=== PATIENT | male | born 1985 | race Two or more races ===

== ENCOUNTER 2021-03-04 09:57 | Emergency (ER) | payer OTHER, SELFPAY ==
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
[2021-03-04 11:28] VITALS: BP 144/65; PULSE 95; RESP 16; TEMP 36.7; O2SAT 99; BMI 29.2
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
[2021-03-04] MEDS: Acetaminophen 325 MG TABLET 650 MG PO (13:54)
[2021-03-04] MEDS: Ibuprofen 400 MG TABLET PO (13:55)
--- NOTE | 2021-03-04 13:56 | PC.NURSE ---
nicole jarrett, medicated as ordwered
== END 2021-03-04 15:59 | disposition home or self-care (01) ==
PROVIDERS: Emergency Provider Student in an Organized Health Care Education/Training Program
DX: S06.0X9A Concussion with loss of consciousness of unspecified duration, initial encounter (principal); S13.4XXA Sprain of ligaments of cervical spine, initial encounter; V89.2XXA Person injured in unspecified motor-vehicle accident, traffic, initial encounter; Y93.9 Activity, unspecified; Y92.410 Unspecified street and highway as the place of occurrence of the external cause; Y99.9 Unspecified external cause status
CPT/HCPCS: 70450; 72125; 99283; 99284